=== PATIENT | male | born 1955 | race Caucasian/White ===

== ENCOUNTER 2022-06-26 13:29 | Outpatient (CLI) | payer MEDICARE, BC | END 2022-06-26 13:30 | disposition home or self-care (01) | LOC: CSHCT 13:29 | PROVIDERS: ATTEND Orthopaedic Surgery | DX: Z96.642 Presence of left artificial hip joint (principal) ==

== ENCOUNTER 2024-01-27 09:41 | Outpatient (CLI) | payer MEDICARE, BC | END 2024-01-27 09:42 | disposition home or self-care (01) | LOC: CSHCT 09:41 | PROVIDERS: ATTEND Student in an Organized Health Care Education/Training Program | DX: R42 Dizziness and giddiness (principal) | CPT/HCPCS: 70450 ==